=== PATIENT | female | born 1975 | race Caucasian/White ===

== ENCOUNTER 2018-06-15 17:18 | Emergency (ER) | payer MEDICAID ==
[2018-06-15] MEDS: ACETAMINOPHEN 500 MG TAB PO (22:25)
== END 2018-06-16 01:33 | disposition home or self-care (01) ==
LOC: FTE 06-16 01:33
DX: O26.891 Other specified pregnancy related conditions, first trimester (principal); R10.2 Pelvic and perineal pain; R40.2412 Glasgow coma scale score 13-15, at arrival to emergency department; Z3A.01 Less than 8 weeks gestation of pregnancy
CPT/HCPCS: 76801; 76817; 84702; 99284-25